=== PATIENT | male | born 1960 | race Caucasian/White ===

== ENCOUNTER 2019-04-05 05:59 | Day surgery (SDC) | payer OTHER ==
[2019-03-31 15:23] VITALS: BMI 40.6
[2019-04-05] MEDS ORDERED: TETRACAINE 0.5% OPHTH SOLN 2 ML BOTTLE ONE (07:10)
[2019-04-05] MEDS ORDERED: POVIDONE-IODINE 5% OPHTHALMIC PREP 30 ML SOLUTION ONE (07:10)
[2019-04-05] MEDS ORDERED: ERYTHROMYCIN 0.5% OPHTHALMIC OINTMENT 3.5 GM TUBE ONE (07:10)
[2019-04-05] MEDS ORDERED: LIDOCAINE 1%/EPI 1:100000 (20 ML MULTI DOSE VIAL) ONE (07:11)
[2019-04-05] MEDS ORDERED: BUPIVACAINE HCL/PF 0.5% (5MG/ML) 10 ML VIAL ONE (07:11)
[2019-04-05] MEDS ORDERED: DEXAMETHASONE SOD PHOSPHATE 4 MG/1 ML VIAL ONE (07:14)
[2019-04-05] MEDS ORDERED: LIDOCAINE HCL/PF 2% SDV 5ML VIAL ONE (07:14)
[2019-04-05] MEDS ORDERED: ceFAZolin SODIUM 1 GM VIAL ONE (07:14)
[2019-04-05] MEDS ORDERED: ONDANSETRON 4 MG/2 ML VIAL ONE (07:14)
[2019-04-05] MEDS ORDERED: PROPOFOL 20 ML ONE ×2 (07:15)
[2019-04-05] MEDS ORDERED: MIDAZOLAM HCL 2 MG/2 ML SINGLE DOSE VIAL ONE (07:15)
[2019-04-05] MEDS ORDERED: oxyCODONE HCL 5 MG TABLET PO PRN ×2 (08:54)
[2019-04-05] MEDS ORDERED: ONDANSETRON 4 MG/2 ML VIAL IVPUSH PRN (08:54)
[2019-04-05] MEDS ORDERED: LACTATED RINGERS SOLUTION 1,000 ML IV SCH (09:00)
[2019-04-05 09:20] VITALS: TEMP 97.6
--- NOTE | 2019-04-05 10:32 | OP ---
DATE OF OPERATION: 04/05/2019 PREOPERATIVE DIAGNOSIS: Carcinoma, right upper lid. POSTOPERATIVE DIAGNOSIS: Carcinoma, right upper lid. PROCEDURES: 1. Full-thickness resection of carcinoma, right upper lid. 2. Primary repair of right upper lid. SURGEON: Antoni Frederick MD ANESTHESIA: LMA. COMPLICATIONS: None. ESTIMATED BLOOD LOSS: 3-4 mL. OPERATIVE REPORT: Patient was brought to the operating room and placed on the operating room table. Vital signs were monitored by anesthesia. He was placed under LMA anesthesia in light of his body habitus and sleep apnea history. A time-out was performed after which a 50/50 mixture of 2% Xylocaine, 1:100,000 epinephrine, 0.5% Marcaine was injected subcutaneously in the right upper lid and then at the right lateral canthus in preparation for a possible right lateral canthal flap. The left eye was taped closed with Steri-Strips after it was prepped and draped. A full-thickness resection of the partially resected eyelid was now carried out in the central eyelid due to the absence of eyelashes and the lash gap and cosmetic deformity that this was result in if it were not repaired appropriately and so full-thickness wedge resection of the lesion area was carried out to the top of the tarsus. The medial edge of the resected tissue was marked with a 6-0 silk making suture and then the lid was repaired with 3 interrupted 6-0 silk sutures, 1 through the anterior lash line, 1 through the posterior mucocutaneous junction, and a vertical mattress suture through the lash line. These were tied reapproximating the margin and then the tarsus was repaired with 4 interrupted 6-0 Vicryl sutures. The lid was everted demonstrating good tarsal apposition without any penetration of sutures. The muscle layer after antibiotic irrigation was closed with 7-0 Vicryl, and the skin was closed with interrupted 6-0 plain sutures removing the standard cutaneous deformity at the top of the incision. The marginal sutures supranasally were secured to the skin with an air knot keeping them away from the cornea. Erythromycin ointment was placed in the eye and on the sutures, and the patient was taken to the recovery room after being awaken from anesthesia. Dallin TONG/[id number]
[2019-04-05 11:02] VITALS: BP 130/78; PULSE 72
--- NOTE | 2019-04-08 11:10 | PATH ---
Surgical Pathology Report Patient Name: IRVIN MUKHERJEE Med. Rec. #: [id number] /Age/Gender: 1960 (Age: 58) / M Account: [id number] Location: [facility] AMBUL[facility] Taken: 04/05/2019 Received: 04/05/2019 Reported: 04/08/2019 Physicians: Antoni Frederick Specimen(s) Received RIGHT UPPER EYELID Clinical History Status post Moh's basal cell Final Diagnosis EYELID, RIGHT UPPER, RECONSTRUCTION: SKIN SHOWING ULCERATION WITH SCALE CRUST. NO RESIDUAL CARCINOMA IS IDENTIFIED. Electronically Signed Alba Brownlee M.D. Gross Description Received in formalin labeled "right upper eyelid," is a 0.9 x 0.4 cm szymanski, irregular portion of skin and soft tissue. There is a suture present marking the medial aspect of the specimen, per the surgeon. The specimen is inked as follows: superior tip blue; inferior tip green; medial aspect yellow; lateral aspect red; deep black. The specimen is serially sectioned from superior to inferior. The specimen is entirely submitted in 3 cassettes as follows: 1-superior tip; 2-central portion of specimen; 3-inferior tip. /04/06/2019 saudi04/06/2019
== END 2019-04-05 10:47 | disposition home or self-care (01) ==
LOC: FASU 05:59
PROVIDERS: ATTEND Ophthalmology
PROC: 08BN0ZZ Excision of Right Upper Eyelid, Open Approach (ICD-10-PCS; principal; 2019-04-05 07:30)
DX: C44.1022 Unspecified malignant neoplasm of skin of right lower eyelid, including canthus (principal)
CPT/HCPCS: 82962; 88305-TC; 94760